=== PATIENT | female | born 1960 | race Caucasian/White ===

== ENCOUNTER 2017-04-09 21:51 | Emergency (ER) | payer MEDICARE ==
[~2017-04-09] VITALS: Ht 162.6 cm; Wt 69.9 kg
[~2017-04-09 21:51] MED LIST: ALBU8.5H3 INH; ASPI-621 PO; ASPI-650 PO; ATOR20TA9 PO; AZIT250T89 PO; CEFD300C37 PO; CYAN10002 PO; CYAN10005 PO; FLUT1DIS3 INH; HYDR-3138 PO; LISI-167 PO; MULT1CAP19 PO; ONDA4TAB7 PO; OXYC10TA32 PO; OXYC5TAB3 PO; PALI273S IM; POLY17PO5 PO; PRED20TA PO; SENN1TAB7 PO; geodon PO; lipitor PO; spironolactone PO
[2017-04-09 21:53] VITALS: BP 129/88
[2017-04-09] MEDS ORDERED: HYDROcodone/APAP 5/325 TABLET PO ONE (23:00)
[2017-04-09] MEDS ORDERED: IBUPROFEN 200 MG TABLET PO ONE (23:00)
[2017-04-09] MEDS ORDERED: HYDROcodone/APAP 5/325 TABLET ONE (23:01)
[2017-04-09] MEDS ORDERED: IBUPROFEN 200 MG TABLET ONE (23:01)
== END 2017-04-09 23:56 | disposition home or self-care (01) ==
LOC: ED 23:00
DX: S93.402A Sprain of unspecified ligament of left ankle, initial encounter (principal); R30.0 Dysuria; S93.602A Unspecified sprain of left foot, initial encounter; G45.9 Transient cerebral ischemic attack, unspecified; I11.0 Hypertensive heart disease with heart failure; I50.9 Heart failure, unspecified; J44.9 Chronic obstructive pulmonary disease, unspecified; E78.5 Hyperlipidemia, unspecified; M54.9 Dorsalgia, unspecified; G89.29 Other chronic pain; X50.9XXA Other and unspecified overexertion or strenuous movements or postures, initial encounter; Y93.89 Activity, other specified; Y92.89 Other specified places as the place of occurrence of the external cause; Y99.8 Other external cause status
CPT/HCPCS: 81003

== ENCOUNTER 2017-04-12 19:05 | Emergency (ER) | payer MEDICARE ==
[~2017-04-12] VITALS: Ht 162.6 cm; Wt 70.2 kg
[2017-04-12 19:16] VITALS: BP 106/69
[2017-04-12] MEDS ORDERED: HYDROcodone/APAP 5/325 TABLET PO ONE (20:36)
[2017-04-12] MEDS ORDERED: HYDROcodone/APAP 5/325 TABLET ONE (20:45)
== END 2017-04-12 20:54 | disposition home or self-care (01) ==
LOC: ED 20:48
DX: S93.492A Sprain of other ligament of left ankle, initial encounter (principal); I11.0 Hypertensive heart disease with heart failure; I50.9 Heart failure, unspecified; J44.9 Chronic obstructive pulmonary disease, unspecified; E78.5 Hyperlipidemia, unspecified; Z86.73 Personal history of transient ischemic attack (TIA), and cerebral infarction without residual deficits; Z90.710 Acquired absence of both cervix and uterus; Z88.0 Allergy status to penicillin; X58.XXXA Exposure to other specified factors, initial encounter; Y93.89 Activity, other specified; Y92.89 Other specified places as the place of occurrence of the external cause; Y99.9 Unspecified external cause status
CPT/HCPCS: 99284

== ENCOUNTER 2017-11-14 08:06 | Observation (INO) | payer MEDICARE, MEDICAID ==
[~2017-11-14] VITALS: Ht 165.1 cm; Wt 65.0 kg
[~2017-11-14 08:06] MED LIST changes: -ALBU8.5H3 INH; +ALBU8.5H8 INH; -HYDR-3138 PO; +HYDR-3237 PO; -OXYC10TA32 PO; +OXYC10TA47 PO
[2017-11-14 08:49] LABS: HEMATOCRIT 38.4 % (34.6-47.8); WHITE BLOOD COUNT 8.4 x10^3/uL (3.4-10)
[2017-11-14 09:01] LABS: BLOOD UREA NITROGEN 12 mg/dL (7-18)
[2017-11-14 09:02] LABS: ACETAMINOPHEN < 2 mcg/mL (10-30)
[2017-11-14 14:07] LABS: DAU SCREEN DISCLAIMER; HCG UR LOT HCG706132
[2017-11-14 14:29] LABS: HCG UR OBC PASS
[2017-11-14] MEDS ORDERED: ONDANSETRON ODT 4 MG PO PRN (15:30)
[2017-11-14 16:26] VITALS: BP 133/77
[2017-11-14] MEDS: ACETAMINOPHEN 325 MG TABLET PO PRN ×2 (17:05→23:57)
[2017-11-14 19:32] VITALS: BP 116/67
[2017-11-14] MEDS ORDERED: ATORVASTATIN 20 MG TABLET ONE (19:58)
[2017-11-14] MEDS: ATORVASTATIN 20 MG TABLET PO SCH ×2 (20:00→20:04)
[2017-11-15] MEDS: ASPIRIN 81 MG TABLET EC PO SCH (07:19)
[2017-11-15 07:52] VITALS: BP 128/77
[2017-11-15] MEDS: ACETAMINOPHEN 325 MG TABLET PO PRN ×3 (08:19→15:54)
[2017-11-15] MEDS: LISINOPRIL 10 MG TABLET PO SCH (08:19)
[2017-11-15] MEDS: IBUPROFEN 200 MG TABLET PO PRN ×2 (16:55→22:44)
[2017-11-15] MEDS: LORazepam 1MG TABLET PO PRN (19:35)
[2017-11-15 20:00] VITALS: BP 137/75
[2017-11-15] MEDS: ATORVASTATIN 20 MG TABLET PO SCH (20:18)
[2017-11-16] MEDS: ASPIRIN 81 MG TABLET EC PO SCH (06:51)
[2017-11-16] MEDS: ACETAMINOPHEN 325 MG TABLET PO PRN (06:51)
[2017-11-16 07:30] VITALS: BP 137/77
[2017-11-16] MEDS: LISINOPRIL 10 MG TABLET PO SCH (08:44)
[2017-11-16] MEDS: IBUPROFEN 200 MG TABLET PO PRN ×2 (09:58→20:57)
[2017-11-16] MEDS: LORazepam 1MG TABLET PO PRN ×2 (09:58→20:57)
[2017-11-16] MEDS: BENZOCAINE/MENTHOL CAN TP PRN ×2 (16:01→20:32)
[2017-11-16 20:00] VITALS: BP 131/85
[2017-11-16] MEDS: ATORVASTATIN 20 MG TABLET PO SCH (20:32)
[2017-11-17] MEDS: ASPIRIN 81 MG TABLET EC PO SCH (06:41)
[2017-11-17 08:01] VITALS: BP 128/78
[2017-11-17] MEDS: LISINOPRIL 10 MG TABLET PO SCH (08:17)
[2017-11-17] MEDS: IBUPROFEN 200 MG TABLET PO PRN (10:27)
[2017-11-17] MEDS: LORazepam 1MG TABLET PO PRN (10:27)
[2017-11-17] MEDS: ACETAMINOPHEN 325 MG TABLET PO PRN (14:02)
== END 2017-11-17 15:00 ==
LOC: ED 12:19 → EDIP 14:01 → 2N 15:52
PROVIDERS: ADMIT Hospitalist; ATTEND Hospitalist
DX: R45.851 Suicidal ideations (principal); F33.2 Major depressive disorder, recurrent severe without psychotic features; F20.9 Schizophrenia, unspecified; G89.29 Other chronic pain; E78.5 Hyperlipidemia, unspecified; J44.9 Chronic obstructive pulmonary disease, unspecified; I50.9 Heart failure, unspecified; I11.0 Hypertensive heart disease with heart failure; G45.9 Transient cerebral ischemic attack, unspecified; F41.1 Generalized anxiety disorder; Y90.0 Blood alcohol level of less than 20 mg/100 ml; Z59.0 Homelessness; Z86.73 Personal history of transient ischemic attack (TIA), and cerebral infarction without residual deficits; Z87.891 Personal history of nicotine dependence; Z90.710 Acquired absence of both cervix and uterus; Z91.83 Wandering in diseases classified elsewhere
CPT/HCPCS: 36415; 80048; 80307; 80329; 81025; 82040; 85025; 99285; G0378; G0479; G0480

== ENCOUNTER 2018-03-04 20:12 | Emergency (ER) | payer MEDICAID, MEDICARE ==
[~2018-03-04] VITALS: Ht 165.1 cm; Wt 61.2 kg
[2018-03-04 20:16] VITALS: BP 138/83
== END 2018-03-04 21:03 | disposition left against medical advice (07) ==
LOC: ED 20:57
DX: R51 Headache (principal); R10.9 Unspecified abdominal pain; R21 Rash and other nonspecific skin eruption; Z53.21 Procedure and treatment not carried out due to patient leaving prior to being seen by health care provider

== ENCOUNTER 2018-05-31 20:11 | Emergency (ER) | payer MEDICARE ==
[~2018-05-31] VITALS: Ht 167.6 cm; Wt 66.4 kg
[2018-05-31] MEDS ORDERED: IBUPROFEN 200 MG TABLET PO ONE (21:00)
[2018-05-31] MEDS ORDERED: IBUPROFEN 200 MG TABLET ONE (21:23)
[2018-05-31 22:05] VITALS: BP 118/74
== END 2018-05-31 22:58 | disposition home or self-care (01) ==
LOC: ED 20:59
DX: M79.605 Pain in left leg (principal); M79.604 Pain in right leg; J44.9 Chronic obstructive pulmonary disease, unspecified; E78.5 Hyperlipidemia, unspecified; F20.9 Schizophrenia, unspecified; F17.200 Nicotine dependence, unspecified, uncomplicated; Z59.0 Homelessness
CPT/HCPCS: 99283

== ENCOUNTER 2019-11-06 21:28 | Emergency (ER) | payer OTHER ==
[~2019-11-06] VITALS: Ht 160 cm; Wt 78.0 kg
[~2019-11-06 21:28] MED LIST changes: -ASPI-621 PO; +ASPI81TA45 PO; +ATOR20TA37 PO; -ATOR20TA9 PO; +CYAN-27 PO; -CYAN10005 PO; +LORA-446 PO; +NICO-486 TD; +OLAN10TA9 PO; +SENN-177 PO; -SENN1TAB7 PO
--- NOTE | 2019-11-07 03:43 | NUR ---
PT STS "IM HERE BECAUSE I FELL OUT OF AN ABULANCE EARLIER, THEY DID XRAYS." WHEN ASKED WHY SHE WAS IN AN ABULANCE, PT STS "ID RATHER NOT DISCUSS IT."
--- NOTE | 2019-11-07 03:57 | NUR ---
PT OFFERED ICE PACK. PT REFUSING ICE PACK AT THIS TIME
[2019-11-07] MEDS ORDERED: IBUPROFEN 600 MG TABLET PO ONE (04:00)
[2019-11-07] MEDS ORDERED: IBUPROFEN 600 MG TABLET ONE (04:22)
[2019-11-07 04:25] VITALS: BP 121/77
== END 2019-11-07 05:14 | disposition home or self-care (01) ==
LOC: ED 11-07 05:06
DX: S52.501A Unspecified fracture of the lower end of right radius, initial encounter for closed fracture (principal); W01.0XXA Fall on same level from slipping, tripping and stumbling without subsequent striking against object, initial encounter; Y93.89 Activity, other specified; Y92.410 Unspecified street and highway as the place of occurrence of the external cause; Y99.8 Other external cause status; I11.0 Hypertensive heart disease with heart failure; I50.9 Heart failure, unspecified; J44.9 Chronic obstructive pulmonary disease, unspecified; E78.5 Hyperlipidemia, unspecified; F17.200 Nicotine dependence, unspecified, uncomplicated; Z86.73 Personal history of transient ischemic attack (TIA), and cerebral infarction without residual deficits; Z90.710 Acquired absence of both cervix and uterus
CPT/HCPCS: 29125; 99283

== ENCOUNTER 2020-08-20 14:00 | Inpatient (IN) | payer MEDICARE ==
[~2020-08-20] VITALS: Ht 162.6 cm; Wt 72.5 kg
[~2020-08-20 14:00] MED LIST changes: +OLAN10TA3 PO; +OLAN5TAB9 PO; +SERT100T PO; +TRAM50TA2 PO; +TRAZ50TA66 PO
[2020-08-24] MEDS ORDERED: OLANZAPINE 10 MG INJ IM ONE (16:28)
[2020-08-24] MEDS ORDERED: DIAZEPAM 5 MG/ML, 2ML IM ONE (16:28)
[2020-08-24] MEDS ORDERED: PLEASE ENTER HEIGHT AND WEIGHT MC SCH (16:35)
[2020-08-24] MEDS ORDERED: LORazepam 2 MG/ML, 1ML IM STA (16:42)
[2020-08-24] MEDS ORDERED: DIPHENHYDRAMINE 50 MG/ML, 1ML IM STA (16:42)
[2020-08-24] MEDS ORDERED: HALOPERIDOL 5 MG/ML IM STA (16:42)
[2020-08-24] MEDS ORDERED: BISACODYL 10 MG SUPP PR PRN (17:00)
[2020-08-24] MEDS ORDERED: POLYETHYLENE GLYCOL 17 GM PACKET PO PRN (17:00)
[2020-08-24] MEDS ORDERED: DOCUSATE 100 MG CAPSULE PO PRN (17:00)
[2020-08-24] MEDS ORDERED: ONDANSETRON ODT 4 MG PO PRN (17:00)
[2020-08-24 17:11] VITALS: BP 131/86
[2020-08-24 20:00] VITALS: BP 139/85
[2020-08-25 05:26] LABS: CHOLESTEROL, TOTAL 245 mg/dL (140-239); TRIGLYCERIDES 404 mg/dL (50-200)
[2020-08-25 05:35] LABS: CHOL/HDL RATIO 5.7; FREE T4 (FREE THYROXINE) 0.84 ng/dL (0.76-1.46); HDL CHOL % 18 % (28-40); HDL CHOLESTEROL (DIRECT) 43 mg/dL (40-60)
[2020-08-25 07:34] VITALS: BP 115/75
[2020-08-25] MEDS: NICOTINE 7 MG/24 HR PATCH.TD24 TD SCH (08:24)
[2020-08-25] MEDS: DIAZEPAM 5 MG TABLET PO SCH ×2 (11:07→20:41)
[2020-08-25] MEDS: OLANZAPINE 10 MG TABLET PO SCH ×2 (11:07→20:41)
[2020-08-25] MEDS: ACETAMINOPHEN 325 MG TABLET PO PRN (20:41)
[2020-08-25 20:59] VITALS: BP 136/82
[2020-08-26 07:00] VITALS: BP 109/73
[2020-08-26] MEDS: DIAZEPAM 5 MG TABLET PO SCH ×2 (08:24→20:13)
[2020-08-26] MEDS: OLANZAPINE 10 MG TABLET PO SCH ×2 (08:24→20:13)
[2020-08-26] MEDS: NICOTINE 7 MG/24 HR PATCH.TD24 TD SCH (08:25)
[2020-08-26 19:46] VITALS: BP 123/80
[2020-08-27 08:24] VITALS: BP 118/80
[2020-08-27] MEDS: NICOTINE 7 MG/24 HR PATCH.TD24 TD SCH (09:00)
[2020-08-27] MEDS: OLANZAPINE 10 MG TABLET PO SCH ×2 (09:00→20:19)
[2020-08-27] MEDS: DIAZEPAM 5 MG TABLET PO SCH ×2 (09:00→20:18)
[2020-08-27 19:01] VITALS: BP 125/83
[2020-08-27] MEDS: ACETAMINOPHEN 325 MG TABLET PO PRN (20:49)
[2020-08-28 07:00] VITALS: BP 118/73
[2020-08-28] MEDS: DIAZEPAM 5 MG TABLET PO SCH ×2 (08:21→20:00)
[2020-08-28] MEDS: OLANZAPINE 10 MG TABLET PO SCH ×2 (08:21→20:00)
[2020-08-28] MEDS: NICOTINE 7 MG/24 HR PATCH.TD24 TD SCH (09:00)
[2020-08-28] MEDS: ACETAMINOPHEN 325 MG TABLET PO PRN (18:36)
[2020-08-28 19:30] VITALS: BP 122/67
[2020-08-29 07:25] VITALS: BP 110/70
[2020-08-29] MEDS: DIAZEPAM 5 MG TABLET PO SCH ×2 (08:44→20:28)
[2020-08-29] MEDS: OLANZAPINE 10 MG TABLET PO SCH ×2 (08:44→20:28)
[2020-08-29] MEDS: DIPHENHYDRAMINE 25 MG CAPSULE PO PRN (11:55)
[2020-08-29 20:16] VITALS: BP 95/84
[2020-08-30 07:46] VITALS: BP 104/70
[2020-08-30] MEDS: OLANZAPINE 10 MG TABLET PO SCH ×2 (09:08→20:13)
[2020-08-30] MEDS: DIAZEPAM 5 MG TABLET PO SCH ×2 (09:08→20:13)
[2020-08-30 20:20] VITALS: BP 121/77
[2020-08-31 07:32] VITALS: BP 104/70
[2020-08-31] MEDS: OLANZAPINE 10 MG TABLET PO SCH ×2 (08:57→20:47)
[2020-08-31] MEDS: DIAZEPAM 5 MG TABLET PO SCH ×2 (08:57→20:47)
[2020-08-31] MEDS: ACETAMINOPHEN 325 MG TABLET PO PRN (16:06)
[2020-08-31 20:18] VITALS: BP 119/76
[2020-09-01 07:36] VITALS: BP 101/67
[2020-09-01] MEDS: OLANZAPINE 10 MG TABLET PO SCH ×2 (08:11→20:37)
[2020-09-01] MEDS: DIAZEPAM 5 MG TABLET PO SCH ×2 (08:11→20:37)
[2020-09-01 20:10] VITALS: BP 105/65
[2020-09-01] MEDS: ACETAMINOPHEN 325 MG TABLET PO PRN (20:36)
[2020-09-02 07:34] VITALS: BP 111/66
[2020-09-02] MEDS: DIAZEPAM 5 MG TABLET PO SCH ×2 (08:36→20:17)
[2020-09-02] MEDS: OLANZAPINE 10 MG TABLET PO SCH ×2 (08:37→20:17)
[2020-09-02] MEDS: DIPHENHYDRAMINE 25 MG CAPSULE PO PRN (17:50)
[2020-09-02 19:16] VITALS: BP 123/72
[2020-09-02] MEDS: ACETAMINOPHEN 325 MG TABLET PO PRN (20:17)
[2020-09-03 07:14] VITALS: BP 113/70
[2020-09-03] MEDS: OLANZAPINE 10 MG TABLET PO SCH ×2 (09:09→19:54)
[2020-09-03] MEDS: DIAZEPAM 5 MG TABLET PO SCH ×2 (09:09→19:54)
[2020-09-03 18:27] VITALS: BP 124/81
[2020-09-03] MEDS: ACETAMINOPHEN 325 MG TABLET PO PRN (18:43)
[2020-09-04 07:10] VITALS: BP 115/73
[2020-09-04] MEDS: OLANZAPINE 10 MG TABLET PO SCH ×2 (08:06→20:20)
[2020-09-04] MEDS: DIAZEPAM 5 MG TABLET PO SCH ×2 (08:06→20:20)
[2020-09-04 19:20] VITALS: BP 126/79
[2020-09-05 07:47] VITALS: BP 104/68
[2020-09-05] MEDS: DIAZEPAM 5 MG TABLET PO SCH ×2 (08:34→20:05)
[2020-09-05] MEDS: OLANZAPINE 10 MG TABLET PO SCH ×2 (08:35→20:06)
[2020-09-05 19:54] VITALS: BP 110/75
[2020-09-05] MEDS: ACETAMINOPHEN 325 MG TABLET PO PRN (20:05)
[2020-09-06 07:36] VITALS: BP 107/72
[2020-09-06] MEDS: OLANZAPINE 10 MG TABLET PO SCH ×2 (08:16→19:35)
[2020-09-06] MEDS: DIAZEPAM 5 MG TABLET PO SCH ×2 (08:16→19:35)
[2020-09-06 19:49] VITALS: BP 115/75
[2020-09-07] MEDS: ACETAMINOPHEN 325 MG TABLET PO PRN (06:03)
[2020-09-07 07:21] VITALS: BP 117/80
[2020-09-07] MEDS: DIAZEPAM 5 MG TABLET PO SCH (08:17)
[2020-09-07] MEDS: OLANZAPINE 10 MG TABLET PO SCH (08:18)
[2020-09-07] MEDS ORDERED: LISI-167 PO (12:08)
[2020-09-07] MEDS ORDERED: DIPH25CA26 PO (12:08)
[2020-09-07] MEDS ORDERED: OLAN10TA9 PO (12:08)
== END 2020-09-07 13:15 | disposition home or self-care (01) | DRG 885 ==
LOC: 3E 08-24 16:19
PROVIDERS: ADMIT Psychiatry & Neurology Psychosomatic Medicine; ATTEND Psychiatry & Neurology Psychosomatic Medicine
DX: F20.0 Paranoid schizophrenia (principal); Z91.14 Patient's other noncompliance with medication regimen; F17.200 Nicotine dependence, unspecified, uncomplicated; E78.5 Hyperlipidemia, unspecified; G89.29 Other chronic pain; I10 Essential (primary) hypertension; J44.9 Chronic obstructive pulmonary disease, unspecified; L29.9 Pruritus, unspecified; Z59.0 Homelessness; Z79.899 Other long term (current) drug therapy; Z86.73 Personal history of transient ischemic attack (TIA), and cerebral infarction without residual deficits; Z90.710 Acquired absence of both cervix and uterus; Z91.19 Patient's noncompliance with other medical treatment and regimen
CPT/HCPCS: 36415; 80061; 84439; 84443; 93005; J1200; J1630; J2060; Q0163

== ENCOUNTER 2020-09-14 16:21 | Emergency (ER) | payer MEDICARE, MEDICAID ==
[~2020-09-14] VITALS: Ht 165.1 cm; Wt 59.0 kg
[~2020-09-14 16:21] MED LIST changes: +DIPH25CA26 PO
--- NOTE | 2020-09-14 16:30 | NUR ---
TASK RN. ADOLFO RODRÍGUEZ FOR LLE PAIN S/P GLF. PT STATES "MY NECK IS HURTING AND I FELT LIKE I WAS GOING TO PASS OUT, THEN I TRIPPED OFF THE SIDEWALK AND ROLLED MY ANKLE, I'VE BROKE THAT ANKLE BEFORE." DENIES HITTING HEAD WITH FALL OR ANY LOC. + SWELLING LLE. CMS INTACT. SKIN PWD. PULSE PRESENT. DENIES ANY CP, SOB, DIZZINESS, JIMENEZ AT THIS TIME. RATES PAIN 8/10 LLE, "I HAVE CHRONIC PAIN TOO, SO MY WHOLE BODY AND NECK ALWAYS HURTS." CONT PULSE OX, BP MONITORS APPLIED. VSS. CALL LIGHT IN REACH. FALL PRECAUTIONS IN PLACE. SIDE RAILS UPX2. A&OX4. GENARO ARCEO AT BEDSIDE FOR EVALUATION. AWAITING ORDERS. ASSESSMENT COMPLETED.
--- NOTE | 2020-09-14 16:35 | NUR ---
LLE ELEVATED AND ICE PACK IN PLACE. CMS REMAINS INTACT.
--- NOTE | 2020-09-14 16:45 | NUR ---
BEDSIDE REPORT AND TRANSFER OF CARE TO KERRI GARCIA AT THIS TIME.
--- NOTE | 2020-09-14 17:40 | NUR ---
Daniela alcocer in ED - 09/14/20 at 1741 by SASKIA PT STATED THAT THE SANDWICH IN HIS MEAL TRAY IS SOGGY. NEW MEAL TRAY ORDERED.
[2020-09-14 17:46] VITALS: BP 122/62
--- NOTE | 2020-09-14 17:47 | NUR ---
aircast splint applied by EMT and instructions given distal CSM+. [facility] [place]. Taxi Voucher provided.
--- NOTE | 2020-09-14 17:59 | NUR ---
Patient/Caregiver given discharge instructions and they have confirmed that they understand the instructions. Patient ambulatory to wheelchair. Taxi voucher provided.
== END 2020-09-14 18:33 | disposition home or self-care (01) ==
LOC: ED 17:30
DX: S93.492A Sprain of other ligament of left ankle, initial encounter (principal); M54.2 Cervicalgia; J44.9 Chronic obstructive pulmonary disease, unspecified; I11.0 Hypertensive heart disease with heart failure; I50.9 Heart failure, unspecified; E78.5 Hyperlipidemia, unspecified; F17.200 Nicotine dependence, unspecified, uncomplicated; Z86.73 Personal history of transient ischemic attack (TIA), and cerebral infarction without residual deficits; Z90.89 Acquired absence of other organs; Z90.710 Acquired absence of both cervix and uterus; W01.0XXA Fall on same level from slipping, tripping and stumbling without subsequent striking against object, initial encounter; Y93.89 Activity, other specified; Y92.410 Unspecified street and highway as the place of occurrence of the external cause; Y99.8 Other external cause status
CPT/HCPCS: 99283; 99284

== ENCOUNTER 2020-11-05 09:22 | Emergency (ER) | payer MEDICAID, MEDICARE ==
[~2020-11-05] VITALS: Ht 165.1 cm; Wt 65.0 kg
--- NOTE | 2020-11-05 09:26 | NUR ---
patient arrives with cold exposure from sleeping outside on streets.
--- NOTE | 2020-11-05 09:35 | NUR ---
patient has warming blanket and warm blankets, rails up in bed
--- NOTE | 2020-11-05 10:29 | NUR ---
got patient broth warm soup, muffin and water.
--- NOTE | 2020-11-05 11:40 | NUR ---
ate all of soup. sleeping. still states feet hurt, feet are warm now
[2020-11-05 11:57] VITALS: BP 132/78
--- NOTE | 2020-11-05 12:07 | NUR ---
got patient food, and she has warm clothes. discharge reviewed.
--- NOTE | 2020-11-05 12:31 | NUR ---
patient taking a long time to get dressed, she is not wanting to leave. encouraging her to get on her way.
--- NOTE | 2020-11-05 12:44 | NUR ---
got patient shoes
== END 2020-11-05 12:52 | disposition home or self-care (01) ==
LOC: ED 09:52
DX: T69.9XXA Effect of reduced temperature, unspecified, initial encounter (principal); J44.9 Chronic obstructive pulmonary disease, unspecified; M19.90 Unspecified osteoarthritis, unspecified site; I50.9 Heart failure, unspecified; I11.0 Hypertensive heart disease with heart failure; E78.5 Hyperlipidemia, unspecified; F17.210 Nicotine dependence, cigarettes, uncomplicated; Z90.89 Acquired absence of other organs; Z86.73 Personal history of transient ischemic attack (TIA), and cerebral infarction without residual deficits; Z90.710 Acquired absence of both cervix and uterus
CPT/HCPCS: 99283; 99406

== ENCOUNTER 2021-02-27 21:39 | Emergency (ER) | payer MEDICAID ==
[~2021-02-27] VITALS: Ht 162.6 cm; Wt 72.0 kg
[~2021-02-27 21:39] MED LIST changes: -ASPI-650 PO; +ASPI325T20 PO; -OXYC5TAB3 PO; +OXYC5TAB98 PO
--- NOTE | 2021-02-27 21:52 | NUR ---
Patient BIBA from the street c/o bilat leg stiffness. Per EMS, patient was sitting on a curb; [employer] contacted patient and she stated she needed medical attention. Patient states she is having diff walking. Symptoms started x2 days ago. Patient is in NAD. Respirations even and unlabored.
[2021-02-27 22:20] LABS: BASOPHILS % (AUTO) 1 % (0-1); EOSINOPHILS % (AUTO) 1 % (1-7); LYMPHOCYTES % (AUTO) 26 % (22-44); MEAN CORPUSCULAR HEMOGLOBIN 28.2 pg (27.0-34.8); MEAN CORPUSCULAR HGB CONC 33.1 g/dL (32.4-35.8); MEAN PLATELET VOLUME 8.2 fL (7.4-10.4); MONOCYTES % (AUTO) 8 % (2-9); NEUTROPHILS % (AUTO) 65 % (42-75); PLATELET COUNT 232 x10^3/uL (130-400); RED BLOOD COUNT 4.06 x10^6/uL (3.82-5.3); RED CELL DISTRIBUTION WIDTH 20.2 % (9.6-15.2)
[2021-02-27 22:28] LABS: ALBUMIN 3.9 g/dL (3.4-5.0); ANION GAP 4 mmol/L (5-15); C-REACTIVE PROTEIN, QUANT 0.67 mg/dL (0.02-0.49); CALCIUM 9.1 mg/dL (8.5-10.1); CHLORIDE 111 mmol/L (98-107); CREATININE 0.67 mg/dL (0.55-1.02)
[2021-02-27 22:32] LABS: TROPONIN I < 0.015 ng/mL (0.000-0.045)
[2021-02-27 22:41] LABS: MD SCAN
--- NOTE | 2021-02-27 23:47 | NUR ---
PATIENT CLEARED FOR DISCHARGE. PATIENT VERBALIZED UNDERSTANDING OF SELF CARE AND FOLLOW UP CARE AT HOME. PT GIVEN WHEELCHAIR PER REQUEST. VITAL SIGNS STABLE. NO NOTED ACUTE DISTRESS.
[2021-02-27 23:48] VITALS: BP 170/68
== END 2021-02-27 23:50 | disposition home or self-care (01) ==
LOC: ED 22:46
DX: M79.662 Pain in left lower leg (principal); M79.661 Pain in right lower leg; R94.31 Abnormal electrocardiogram [ECG] [EKG]; I11.0 Hypertensive heart disease with heart failure; I50.9 Heart failure, unspecified; J44.9 Chronic obstructive pulmonary disease, unspecified; E78.5 Hyperlipidemia, unspecified; Z90.89 Acquired absence of other organs; Z90.710 Acquired absence of both cervix and uterus; Z86.73 Personal history of transient ischemic attack (TIA), and cerebral infarction without residual deficits
CPT/HCPCS: 36415; 80048; 82040; 84484; 85025; 85651; 86140; 93005; 99284

== ENCOUNTER 2021-03-09 14:20 | Emergency (ER) | payer MEDICAID ==
[~2021-03-09] VITALS: Ht 162.6 cm; Wt 95.0 kg
--- NOTE | 2021-03-09 14:54 | NUR ---
THIS TECH ATTEMPTED A BREATHALYZER AT THIS TIME AND P/T DENIED.
--- NOTE | 2021-03-09 15:56 | NUR ---
pt refusing to speak to this rn despite education, offering food/drink/bathroom, and warm blankets. pts daughter masha called [phone]. pt denied sharing information with daughter
[2021-03-09 17:23] VITALS: BP 124/88
--- NOTE | 2021-03-09 17:25 | NUR ---
Patient given discharge instructions and patient would not confirmed that they understood the instructions. Patient became agressive and lunged at this RN. Security called and escorted Patient out. Patient ambulatory with steady gait.
== END 2021-03-09 17:26 | disposition home or self-care (01) ==
LOC: ED 17:20
DX: R51.9 Headache, unspecified (principal); J44.9 Chronic obstructive pulmonary disease, unspecified; I11.0 Hypertensive heart disease with heart failure; I50.9 Heart failure, unspecified; E78.5 Hyperlipidemia, unspecified; Z90.89 Acquired absence of other organs; Z90.710 Acquired absence of both cervix and uterus
CPT/HCPCS: 99283

== ENCOUNTER 2021-03-10 08:09 | Emergency (ER) | payer MEDICAID ==
[~2021-03-10] VITALS: Ht 165.1 cm; Wt 70.0 kg
--- NOTE | 2021-03-10 08:29 | NUR ---
SHELBY ARCEO BEDSIDE
--- NOTE | 2021-03-10 08:35 | NUR ---
ASSUMED PT CARE. "CANT WALK ON MY LEFT FOOT. PUTTING PRESSURE ON IT HURTS. I FEEL VERY SHAKY" "10/10 PAIN, IF NOT MORE." "PT MY CHEST HURTS WELL, RIGHT IN MIDDLE"
--- NOTE | 2021-03-10 08:56 | NUR ---
JAZMIN DAUGHTER FROM [place], PT INITIALLY SAID, "SHE IS " BUT DID GIVE PERMISSION TO SPEAK WITH HER DAUGHTER. DEC 01 TOES TAKEN OFF TOTAL FROM EACH FOOT. BLANCO PARRA ADMITTED MID-DEC TO BEGINNING OF JANUARY FOR BONE INFECTION. FEBRUARY 23 LAST TIME PT SAW HER, PT WAS D/C FROM [place] 02/22. HAD TO BE ON ABX 6 WEEK. PT IS HOMELESS AND MENTALLY ILL WITH SCHIZOPHRENIA
--- NOTE | 2021-03-10 09:04 | NUR ---
JAZMIN DAUGHTER: [phone]
--- NOTE | 2021-03-10 09:13 | NUR ---
PT UNCOOPERATIVE WITH ASSESSMENT, APPEARS AGITATED/ANXIOUS DURING ASSESSMENT. NOT FULLY COMPLETED I.E MED REC.
--- NOTE | 2021-03-10 09:46 | NUR ---
UPDATE DAUGHTER. PT IS STAYING AT EXTENDED STAY AM ON [address]
[2021-03-10 09:53] VITALS: BP 145/76
== END 2021-03-10 10:02 | disposition home or self-care (01) ==
LOC: ED 08:24
DX: M86.172 Other acute osteomyelitis, left ankle and foot (principal); M79.672 Pain in left foot; J44.9 Chronic obstructive pulmonary disease, unspecified; I11.0 Hypertensive heart disease with heart failure; I50.9 Heart failure, unspecified; E78.5 Hyperlipidemia, unspecified; M19.90 Unspecified osteoarthritis, unspecified site; Z90.89 Acquired absence of other organs; Z86.73 Personal history of transient ischemic attack (TIA), and cerebral infarction without residual deficits; Z90.710 Acquired absence of both cervix and uterus
CPT/HCPCS: 93005; 99283

== ENCOUNTER 2021-04-13 04:16 | Emergency (ER) | payer MEDICAID ==
[~2021-04-13] VITALS: Ht 162.6 cm; Wt 72.3 kg
[2021-04-13] MEDS ORDERED: IBUPROFEN 600 MG TABLET ONE (05:15)
--- NOTE | 2021-04-13 05:21 | NUR ---
PT MEDICATED PER EMAR. FSBS 95. ERP UPDATED. RESTING ON [employer] W/ CALL LIGHT IN REACH AND SIDE RAILS UPX2. RESP EVEN AND UNLABORED, SHAWANDA.
[2021-04-13] MEDS ORDERED: IBUPROFEN 600 MG TABLET PO ONE (05:30)
[2021-04-13 06:04] VITALS: BP 139/81
--- NOTE | 2021-04-13 06:11 | NUR ---
Patient given discharge instructions and they have confirmed that they understand the instructions. Patient ambulatory with steady gait. Patient provided w/ water bottles and snacks.
== END 2021-04-13 06:13 | disposition home or self-care (01) ==
LOC: ED 05:48
DX: L55.0 Sunburn of first degree (principal); R51.9 Headache, unspecified; J44.9 Chronic obstructive pulmonary disease, unspecified; I11.0 Hypertensive heart disease with heart failure; I50.9 Heart failure, unspecified; E78.5 Hyperlipidemia, unspecified; Z90.89 Acquired absence of other organs; Z90.710 Acquired absence of both cervix and uterus
CPT/HCPCS: 82962; 99283; Q0177

== ENCOUNTER 2021-06-24 14:05 | Inpatient (IN) | payer MEDICARE, MEDICAID ==
[~2021-06-24] VITALS: Ht 165.1 cm; Wt 90.0 kg
[~2021-06-24 14:05] MED LIST changes: +OLAN10TA69 PO; -OLAN10TA9 PO; +OLAN5TAB69 PO; -OLAN5TAB9 PO
[2021-06-24 14:40] VITALS: BP 111/68
[2021-06-24] MEDS ORDERED: VANCOMYCIN PER PHARMACY MC PRN (15:30)
[2021-06-24] MEDS ORDERED: AMPICILLIN/SULBACTAM 3 GM in SODIUM CHLORIDE 0.9% 100 ML IV SCH (15:30)
[2021-06-24] MEDS ORDERED: ONDANSETRON 2MG/ML, 2ML IVPush PRN (15:30)
[2021-06-24] MEDS ORDERED: ACETAMINOPHEN 325 MG TABLET PO PRN (15:30)
[2021-06-24] MEDS ORDERED: ENALAPRILAT 1.25 MG/ML, 2ML IVPush PRN (15:30)
[2021-06-24] MEDS ORDERED: PHARMACOKINETIC CONSULTATION MC ONE (16:00)
[2021-06-24] MEDS ORDERED: PHARMACOKINETIC MONITORING MC PRN (16:00)
[2021-06-24] MEDS ORDERED: MELOXICAM 15 MG TABLET PO PRN (16:00)
[2021-06-24 16:22] LABS: ALANINE AMINOTRANSFERASE 22 U/L (12-78); ALBUMIN 3.3 g/dL (3.4-5.0); ANION GAP 5 mmol/L (5-15); C-REACTIVE PROTEIN, QUANT 0.12 mg/dL (0.02-0.49); CALCIUM 8.6 mg/dL (8.5-10.1); CHLORIDE 104 mmol/L (98-107); CREATININE 0.57 mg/dL (0.55-1.02)
[2021-06-24 16:24] LABS: ALKALINE PHOSPHATASE 71 U/L (45-117); BILIRUBIN,TOTAL 0.2 mg/dL (0.2-1.0); TOTAL PROTEIN 6.9 g/dL (6.4-8.2)
[2021-06-24 16:26] LABS: BASOPHILS % (AUTO) 0 % (0-1); EOSINOPHILS % (AUTO) 2 % (1-7); HCT (SEDRATE) 36.2 % (34.6-47.8); LYMPHOCYTES % (AUTO) 31 % (22-44); MEAN CORPUSCULAR HEMOGLOBIN 29.7 pg (27.0-34.8); MEAN CORPUSCULAR HGB CONC 33.6 g/dL (32.4-35.8); MEAN PLATELET VOLUME 8.7 fL (7.4-10.4); MONOCYTES % (AUTO) 10 % (2-9); NEUTROPHILS % (AUTO) 57 % (42-75); PLATELET COUNT 187 x10^3/uL (130-400); RED BLOOD COUNT 4.05 x10^6/uL (3.82-5.3); RED CELL DISTRIBUTION WIDTH 14.7 % (9.6-15.2)
[2021-06-24] MEDS: VANCOMYCIN 1,700 MG in SODIUM CHLORIDE 0.9% 250 ML IV SCH (16:26)
[2021-06-24] MEDS ORDERED: GADOTERATE 7.5 MMOL/15ML SYR ONE (18:12)
[2021-06-24] MEDS ORDERED: SIMETHICONE 80 MG CHEW TAB PO PRN (19:00)
[2021-06-24] MEDS: AMPICILLIN/SULBACTAM 3 GM in SODIUM CHLORIDE 0.9% 100 ML IV SCH (19:10)
[2021-06-24 19:46] VITALS: BP 106/60
[2021-06-24] MEDS: morphine SULFATE 10 MG/ML, 1ML IVPush PRN ×2 (19:46→23:01)
[2021-06-24 20:06] LABS: AMPHETAMINE SCREEN, URINE Negative (Negative); BARBITURATE SCREEN, URINE Negative (Negative); BENZODIAZEPINE SCREEN, URINE Negative (Negative); CANNABINOID SCREEN, URINE Negative (Negative); COCAINE SCREEN, URINE Negative (Negative); METHADONE SCREEN, URINE Negative (Negative); OPIATE SCREEN, URINE Negative (Negative)
[2021-06-24] MEDS: OLANZAPINE 10 MG TABLET PO SCH (20:45)
[2021-06-25 00:04] VITALS: BP 121/60
[2021-06-25] MEDS: AMPICILLIN/SULBACTAM 3 GM in SODIUM CHLORIDE 0.9% 100 ML IV SCH ×4 (01:07→19:42)
[2021-06-25] MEDS: VANCOMYCIN 1,700 MG in SODIUM CHLORIDE 0.9% 250 ML IV SCH ×2 (04:15→16:01)
[2021-06-25 05:54] LABS: ANION GAP 4 mmol/L (5-15); CALCIUM 8.4 mg/dL (8.5-10.1); CHLORIDE 112 mmol/L (98-107); CREATININE 0.54 mg/dL (0.55-1.02)
[2021-06-25] MEDS: morphine SULFATE 10 MG/ML, 1ML IVPush PRN ×5 (06:25→23:39)
[2021-06-25 06:34] LABS: BASOPHILS % (AUTO) 1 % (0-1); EOSINOPHILS % (AUTO) 2 % (1-7); LYMPHOCYTES % (AUTO) 33 % (22-44); MEAN CORPUSCULAR HEMOGLOBIN 29.7 pg (27.0-34.8); MEAN CORPUSCULAR HGB CONC 33.1 g/dL (32.4-35.8); MEAN PLATELET VOLUME 8.6 fL (7.4-10.4); MONOCYTES % (AUTO) 8 % (2-9); NEUTROPHILS % (AUTO) 56 % (42-75); PLATELET COUNT 181 x10^3/uL (130-400); RED BLOOD COUNT 3.93 x10^6/uL (3.82-5.3); RED CELL DISTRIBUTION WIDTH 14.9 % (9.6-15.2)
[2021-06-25 06:44] VITALS: BP 105/56
[2021-06-25] MEDS ORDERED: FENTANYL PF 100 MCG/2ML ONE ×2 (08:16→09:08)
[2021-06-25] MEDS ORDERED: BUPIVACAINE/PF 0.5% ONE (08:18)
[2021-06-25] MEDS ORDERED: LIDOCAINE 1%, 20ML ONE (08:21)
[2021-06-25] MEDS ORDERED: ONDANSETRON 2MG/ML, 2ML IVPush PRN (08:30)
[2021-06-25] MEDS ORDERED: MEPERIDINE/PF 25MG/0.5ML IVPush PRN (08:30)
[2021-06-25] MEDS ORDERED: OXYcodone 5 MG/5 ML ORAL.SOL UDC PO PRN (08:30)
[2021-06-25] MEDS ORDERED: hydrALAzine 20 MG/ML, 1ML IV PRN (08:30)
[2021-06-25] MEDS ORDERED: FENTANYL PF 100 MCG/2ML IV PRN (08:30)
[2021-06-25] MEDS ORDERED: HYDROmorphone 1 MG/ML, 1ML INJ IVPush PRN (08:30)
[2021-06-25] MEDS ORDERED: PROMETHAZINE 25 MG SUPP PR PRN (08:30)
[2021-06-25] MEDS ORDERED: PROMETHAZINE 25 MG/ML, 1ML IVPush PRN (08:30)
[2021-06-25] MEDS ORDERED: ACETAMINOPHEN 325 MG TABLET PO PRN (08:30)
[2021-06-25] MEDS ORDERED: LABETALOL 5MG/ML, 20ML IV PRN (08:30)
[2021-06-25] MEDS ORDERED: LORazepam 2 MG/ML, 1ML IVPush PRN (08:30)
[2021-06-25] MEDS ORDERED: METHOCARBAMOL 1,000 MG in DEXTROSE 5% 100 ML IV PRN (08:30)
[2021-06-25] MEDS ORDERED: DEXAMETHASONE 4 MG/ML, 1ML ONE (08:45)
[2021-06-25] MEDS ORDERED: CEFAZOLIN 1,000 MG ONE (08:45)
[2021-06-25] MEDS ORDERED: ONDANSETRON 2MG/ML, 2ML ONE (08:45)
[2021-06-25] MEDS ORDERED: PROPOFOL 10 MG/ML, 20ML ONE (08:45)
[2021-06-25] MEDS ORDERED: OXYcodone 5 MG/5 ML ORAL.SOL UDC ONE (09:08)
[2021-06-25] MEDS: SENNA/DOCUSATE TABLET PO SCH (11:00)
[2021-06-25] MEDS: OLANZAPINE 10 MG TABLET PO SCH ×2 (11:50→20:25)
[2021-06-25] MEDS: LISINOPRIL 10 MG TABLET PO SCH (11:50)
[2021-06-25] MEDS: TERBINAFINE 250MG TABLET PO SCH (11:50)
[2021-06-25 12:30] VITALS: BP 109/72
[2021-06-25 19:37] VITALS: BP 100/49
[2021-06-26] MEDS: AMPICILLIN/SULBACTAM 3 GM in SODIUM CHLORIDE 0.9% 100 ML IV SCH ×4 (00:48→20:02)
[2021-06-26 02:04] VITALS: BP 127/76
[2021-06-26] MEDS: VANCOMYCIN 1,700 MG in SODIUM CHLORIDE 0.9% 250 ML IV SCH ×2 (04:08→16:23)
[2021-06-26] MEDS: morphine SULFATE 10 MG/ML, 1ML IVPush PRN ×5 (04:15→20:03)
[2021-06-26 06:17] VITALS: BP 103/67
[2021-06-26 07:20] VITALS: BP 121/79
[2021-06-26] MEDS: TERBINAFINE 250MG TABLET PO SCH (07:32)
[2021-06-26] MEDS: LISINOPRIL 10 MG TABLET PO SCH (07:33)
[2021-06-26] MEDS: SENNA/DOCUSATE TABLET PO SCH (07:33)
[2021-06-26] MEDS: OLANZAPINE 10 MG TABLET PO SCH ×2 (07:33→20:03)
[2021-06-26 12:19] VITALS: BP 124/76
[2021-06-26] MEDS: HYDROcodone/APAP 5/325 TABLET PO PRN ×2 (15:11→21:46)
[2021-06-26 18:52] VITALS: BP 106/69
[2021-06-27 00:39] VITALS: BP 118/74
[2021-06-27] MEDS: AMPICILLIN/SULBACTAM 3 GM in SODIUM CHLORIDE 0.9% 100 ML IV SCH ×4 (01:03→18:14)
[2021-06-27] MEDS: morphine SULFATE 10 MG/ML, 1ML IVPush PRN ×2 (01:26→07:54)
[2021-06-27] MEDS: HYDROcodone/APAP 5/325 TABLET PO PRN ×2 (04:16→18:03)
[2021-06-27] MEDS: VANCOMYCIN 1,700 MG in SODIUM CHLORIDE 0.9% 250 ML IV SCH (04:16)
[2021-06-27 06:08] LABS: ALANINE AMINOTRANSFERASE 40 U/L (12-78); ALBUMIN 3.1 g/dL (3.4-5.0); ANION GAP 2 mmol/L (5-15); C-REACTIVE PROTEIN, QUANT 0.61 mg/dL (0.02-0.49); CALCIUM 8.2 mg/dL (8.5-10.1); CHLORIDE 106 mmol/L (98-107); CREATININE 0.51 mg/dL (0.55-1.02)
[2021-06-27 06:10] LABS: ALKALINE PHOSPHATASE 84 U/L (45-117); BILIRUBIN,TOTAL 0.3 mg/dL (0.2-1.0); TOTAL PROTEIN 6.5 g/dL (6.4-8.2)
[2021-06-27 06:24] LABS: BASOPHILS % (AUTO) 1 % (0-1); EOSINOPHILS % (AUTO) 3 % (1-7); HCT (SEDRATE) 31.8 % (34.6-47.8); LYMPHOCYTES % (AUTO) 36 % (22-44); MEAN CORPUSCULAR HEMOGLOBIN 30.3 pg (27.0-34.8); MEAN CORPUSCULAR HGB CONC 33.8 g/dL (32.4-35.8); MEAN PLATELET VOLUME 8.9 fL (7.4-10.4); MONOCYTES % (AUTO) 9 % (2-9); NEUTROPHILS % (AUTO) 52 % (42-75); PLATELET COUNT 176 x10^3/uL (130-400); RED BLOOD COUNT 3.55 x10^6/uL (3.82-5.3); RED CELL DISTRIBUTION WIDTH 14.9 % (9.6-15.2)
[2021-06-27 06:42] VITALS: BP 129/79
[2021-06-27] MEDS: TERBINAFINE 250MG TABLET PO SCH (07:55)
[2021-06-27] MEDS: OLANZAPINE 10 MG TABLET PO SCH ×2 (07:55→20:20)
[2021-06-27] MEDS: LISINOPRIL 10 MG TABLET PO SCH (07:55)
[2021-06-27] MEDS: SENNA/DOCUSATE TABLET PO SCH (07:56)
[2021-06-27 12:29] VITALS: BP 112/73
[2021-06-27] MEDS: MORPHINE SULFATE 4 MG/ML, 1ML IVPush PRN ×2 (15:17→20:20)
[2021-06-27] MEDS: VANCOMYCIN 1,600 MG in SODIUM CHLORIDE 0.9% 250 ML IV SCH (16:08)
[2021-06-27 19:10] VITALS: BP 152/87
[2021-06-28 00:23] VITALS: BP 131/79
[2021-06-28] MEDS: AMPICILLIN/SULBACTAM 3 GM in SODIUM CHLORIDE 0.9% 100 ML IV SCH ×4 (00:45→20:07)
[2021-06-28] MEDS: HYDROcodone/APAP 5/325 TABLET PO PRN ×4 (00:45→23:26)
[2021-06-28] MEDS: VANCOMYCIN 1,600 MG in SODIUM CHLORIDE 0.9% 250 ML IV SCH ×2 (04:12→16:37)
[2021-06-28 06:50] VITALS: BP 137/77
[2021-06-28] MEDS: OLANZAPINE 10 MG TABLET PO SCH ×2 (07:51→20:07)
[2021-06-28] MEDS: LISINOPRIL 10 MG TABLET PO SCH (07:51)
[2021-06-28] MEDS: SENNA/DOCUSATE TABLET PO SCH (07:51)
[2021-06-28] MEDS: TERBINAFINE 250MG TABLET PO SCH (07:52)
[2021-06-28 12:09] VITALS: BP 130/84
[2021-06-28 20:09] VITALS: BP 130/78
[2021-06-29] MEDS: AMPICILLIN/SULBACTAM 3 GM in SODIUM CHLORIDE 0.9% 100 ML IV SCH ×2 (01:57→07:44)
[2021-06-29 02:00] VITALS: BP 110/78
[2021-06-29] MEDS: VANCOMYCIN 1,600 MG in SODIUM CHLORIDE 0.9% 250 ML IV SCH (04:27)
[2021-06-29] MEDS: HYDROcodone/APAP 5/325 TABLET PO PRN ×3 (04:27→21:34)
[2021-06-29 07:18] VITALS: BP 146/76
[2021-06-29] MEDS: LISINOPRIL 10 MG TABLET PO SCH (09:15)
[2021-06-29] MEDS: OLANZAPINE 10 MG TABLET PO SCH ×2 (09:15→21:34)
[2021-06-29] MEDS: TERBINAFINE 250MG TABLET PO SCH (09:16)
[2021-06-29] MEDS: SENNA/DOCUSATE TABLET PO SCH (09:17)
[2021-06-29] MEDS: CEFAZOLIN 2,000 MG in SODIUM CHLORIDE 0.9% 50 ML IV SCH ×2 (12:24→21:34)
[2021-06-29 13:48] VITALS: BP 122/75
[2021-06-29 19:18] VITALS: BP 120/74
[2021-06-29] MEDS ORDERED: VANCOMYCIN 1,600 MG in SODIUM CHLORIDE 0.9% 250 ML IV SCH (22:00)
[2021-06-30 03:17] VITALS: BP 132/78
[2021-06-30] MEDS: CEFAZOLIN 2,000 MG in SODIUM CHLORIDE 0.9% 50 ML IV SCH (05:17)
[2021-06-30] MEDS: HYDROcodone/APAP 5/325 TABLET PO PRN ×4 (05:26→19:41)
[2021-06-30 06:44] VITALS: BP 106/77
[2021-06-30] MEDS: SENNA/DOCUSATE TABLET PO SCH (09:00)
[2021-06-30] MEDS: LISINOPRIL 10 MG TABLET PO SCH (09:43)
[2021-06-30] MEDS: TERBINAFINE 250MG TABLET PO SCH (09:43)
[2021-06-30] MEDS: OLANZAPINE 10 MG TABLET PO SCH ×2 (09:44→19:41)
[2021-06-30] MEDS: CEFAZOLIN PMX 2GM/50ML 50 ML IVPB SCH (13:00)
[2021-06-30 15:25] VITALS: BP 99/65
[2021-06-30 20:06] VITALS: BP_SYST 101; BP_SYST 144; BP_DIAS 64; BP_DIAS 76
[2021-07-01] MEDS: CEFAZOLIN PMX 2GM/50ML 50 ML IVPB SCH ×3 (00:25→16:53)
[2021-07-01 01:22] VITALS: BP 114/71
[2021-07-01] MEDS: HYDROcodone/APAP 5/325 TABLET PO PRN ×3 (05:45→21:02)
[2021-07-01 06:38] VITALS: BP 104/70
[2021-07-01] MEDS: TERBINAFINE 250MG TABLET PO SCH (08:02)
[2021-07-01] MEDS: OLANZAPINE 10 MG TABLET PO SCH ×2 (08:03→21:03)
[2021-07-01] MEDS: SENNA/DOCUSATE TABLET PO SCH (08:03)
[2021-07-01] MEDS: LISINOPRIL 10 MG TABLET PO SCH (08:03)
[2021-07-01 13:00] VITALS: BP 112/73
[2021-07-01 18:51] VITALS: BP 122/79
[2021-07-02 00:17] VITALS: BP 125/82
[2021-07-02] MEDS: CEFAZOLIN PMX 2GM/50ML 50 ML IVPB SCH ×3 (00:34→16:26)
[2021-07-02] MEDS: HYDROcodone/APAP 5/325 TABLET PO PRN ×3 (05:25→21:20)
[2021-07-02 06:46] VITALS: BP 120/80
[2021-07-02] MEDS: OLANZAPINE 10 MG TABLET PO SCH ×2 (08:06→21:20)
[2021-07-02] MEDS: LISINOPRIL 10 MG TABLET PO SCH (08:06)
[2021-07-02] MEDS: TERBINAFINE 250MG TABLET PO SCH (08:07)
[2021-07-02] MEDS: SENNA/DOCUSATE TABLET PO SCH (08:07)
[2021-07-02 14:14] VITALS: BP 114/60
[2021-07-02] MEDS: DIAZEPAM 5 MG TABLET PO PRN (17:41)
[2021-07-02 19:12] VITALS: BP 125/80
[2021-07-03] MEDS: CEFAZOLIN PMX 2GM/50ML 50 ML IVPB SCH ×3 (00:36→16:39)
[2021-07-03 00:42] VITALS: BP 116/74
[2021-07-03] MEDS: HYDROcodone/APAP 5/325 TABLET PO PRN ×4 (06:01→22:51)
[2021-07-03 07:07] VITALS: BP 109/73
[2021-07-03] MEDS: OLANZAPINE 10 MG TABLET PO SCH ×2 (09:01→20:06)
[2021-07-03] MEDS: TERBINAFINE 250MG TABLET PO SCH (09:02)
[2021-07-03] MEDS: LISINOPRIL 10 MG TABLET PO SCH (09:03)
[2021-07-03] MEDS: SENNA/DOCUSATE TABLET PO SCH (09:03)
[2021-07-03 12:06] VITALS: BP 122/74
[2021-07-03 20:11] VITALS: BP 123/77
[2021-07-04 00:17] VITALS: BP 119/76
[2021-07-04] MEDS: CEFAZOLIN PMX 2GM/50ML 50 ML IVPB SCH ×2 (00:33→10:11)
[2021-07-04] MEDS: DIAZEPAM 5 MG TABLET PO PRN (00:59)
[2021-07-04] MEDS: HYDROcodone/APAP 5/325 TABLET PO PRN ×4 (04:17→20:35)
[2021-07-04 05:48] LABS: BASOPHILS % (AUTO) 0 % (0-1); EOSINOPHILS % (AUTO) 2 % (1-7); LYMPHOCYTES % (AUTO) 26 % (22-44); MEAN CORPUSCULAR HEMOGLOBIN 30.2 pg (27.0-34.8); MEAN CORPUSCULAR HGB CONC 33.8 g/dL (32.4-35.8); MEAN PLATELET VOLUME 8.4 fL (7.4-10.4); MONOCYTES % (AUTO) 11 % (2-9); NEUTROPHILS % (AUTO) 61 % (42-75); PLATELET COUNT 206 x10^3/uL (130-400); RED BLOOD COUNT 3.66 x10^6/uL (3.82-5.3); RED CELL DISTRIBUTION WIDTH 15.1 % (9.6-15.2)
[2021-07-04 05:57] LABS: ALANINE AMINOTRANSFERASE 15 U/L (12-78); ALBUMIN 3.2 g/dL (3.4-5.0); ANION GAP 5 mmol/L (5-15); CALCIUM 8.2 mg/dL (8.5-10.1); CHLORIDE 105 mmol/L (98-107); CREATININE 0.55 mg/dL (0.55-1.02)
[2021-07-04 06:05] LABS: ALKALINE PHOSPHATASE 78 U/L (45-117); BILIRUBIN,TOTAL 0.4 mg/dL (0.2-1.0)
[2021-07-04] MEDS: LISINOPRIL 10 MG TABLET PO SCH (10:11)
[2021-07-04] MEDS: OLANZAPINE 10 MG TABLET PO SCH ×2 (10:11→20:31)
[2021-07-04] MEDS: TERBINAFINE 250MG TABLET PO SCH (10:12)
[2021-07-04] MEDS: SENNA/DOCUSATE TABLET PO SCH (10:12)
[2021-07-04 12:37] VITALS: BP 124/78
[2021-07-04] MEDS ORDERED: DALBAVANCIN HCL 1,500 MG in DEXTROSE 5% 500 ML IV ONE (13:00)
[2021-07-04 20:35] VITALS: BP 144/79
[2021-07-05 00:40] VITALS: BP 130/79
[2021-07-05] MEDS: HYDROcodone/APAP 5/325 TABLET PO PRN ×4 (03:48→20:22)
[2021-07-05 07:03] VITALS: BP 119/79
[2021-07-05] MEDS: SENNA/DOCUSATE TABLET PO SCH (08:51)
[2021-07-05] MEDS: LISINOPRIL 10 MG TABLET PO SCH (08:52)
[2021-07-05] MEDS: OLANZAPINE 10 MG TABLET PO SCH ×2 (08:52→20:17)
[2021-07-05] MEDS: TERBINAFINE 250MG TABLET PO SCH (08:52)
[2021-07-05 12:50] VITALS: BP 130/83
[2021-07-05] MEDS: HEPARIN 5,000 UNITS/ML, 1ML SQ SCH ×2 (15:08→23:14)
[2021-07-05 20:12] VITALS: BP 121/79
[2021-07-06 00:29] VITALS: BP 110/71
[2021-07-06] MEDS: HYDROcodone/APAP 5/325 TABLET PO PRN ×2 (02:27→19:35)
[2021-07-06] MEDS: HEPARIN 5,000 UNITS/ML, 1ML SQ SCH ×3 (08:39→23:22)
[2021-07-06] MEDS: TERBINAFINE 250MG TABLET PO SCH (08:39)
[2021-07-06] MEDS: SENNA/DOCUSATE TABLET PO SCH (08:40)
[2021-07-06] MEDS: LISINOPRIL 10 MG TABLET PO SCH (08:40)
[2021-07-06] MEDS: OLANZAPINE 10 MG TABLET PO SCH ×2 (08:40→19:34)
[2021-07-06 08:47] VITALS: BP 122/79
[2021-07-06 14:03] VITALS: BP 126/78
[2021-07-06] MEDS: MORPHINE SULFATE 4 MG/ML, 1ML IVPush PRN (15:53)
[2021-07-06 20:46] VITALS: BP 120/72
[2021-07-06] MEDS: DIAZEPAM 5 MG TABLET PO PRN (20:49)
[2021-07-07 01:53] VITALS: BP 104/68
[2021-07-07] MEDS: HYDROcodone/APAP 5/325 TABLET PO PRN ×2 (03:16→21:17)
[2021-07-07 06:34] VITALS: BP 107/66
[2021-07-07] MEDS: TERBINAFINE 250MG TABLET PO SCH (08:29)
[2021-07-07] MEDS: SENNA/DOCUSATE TABLET PO SCH (08:30)
[2021-07-07] MEDS: HEPARIN 5,000 UNITS/ML, 1ML SQ SCH ×3 (08:30→23:11)
[2021-07-07] MEDS: OLANZAPINE 10 MG TABLET PO SCH ×2 (08:30→21:17)
[2021-07-07] MEDS: LISINOPRIL 10 MG TABLET PO SCH (08:31)
[2021-07-07] MEDS: MORPHINE SULFATE 4 MG/ML, 1ML IVPush PRN ×2 (18:14→23:53)
[2021-07-07 19:13] VITALS: BP 116/64
[2021-07-08 01:35] VITALS: BP 111/74
[2021-07-08] MEDS: HYDROcodone/APAP 5/325 TABLET PO PRN ×2 (03:36→11:06)
[2021-07-08] MEDS: MORPHINE SULFATE 4 MG/ML, 1ML IVPush PRN ×5 (06:03→20:57)
[2021-07-08 07:36] VITALS: BP 127/81
[2021-07-08] MEDS: TERBINAFINE 250MG TABLET PO SCH (08:19)
[2021-07-08] MEDS: SENNA/DOCUSATE TABLET PO SCH (08:20)
[2021-07-08] MEDS: LISINOPRIL 10 MG TABLET PO SCH (08:20)
[2021-07-08] MEDS: OLANZAPINE 10 MG TABLET PO SCH ×2 (08:20→21:04)
[2021-07-08] MEDS: HEPARIN 5,000 UNITS/ML, 1ML SQ SCH ×3 (08:20→22:31)
[2021-07-08 13:54] VITALS: BP 110/73
[2021-07-08 19:27] VITALS: BP 148/83
[2021-07-09 00:20] VITALS: BP 116/68
[2021-07-09] MEDS: MORPHINE SULFATE 4 MG/ML, 1ML IVPush PRN ×6 (01:39→22:45)
[2021-07-09 06:53] VITALS: BP 115/73
[2021-07-09] MEDS: LISINOPRIL 10 MG TABLET PO SCH (07:45)
[2021-07-09] MEDS: SENNA/DOCUSATE TABLET PO SCH (07:45)
[2021-07-09] MEDS: HEPARIN 5,000 UNITS/ML, 1ML SQ SCH ×3 (07:45→22:44)
[2021-07-09] MEDS: OLANZAPINE 10 MG TABLET PO SCH ×2 (07:46→20:39)
[2021-07-09] MEDS: TERBINAFINE 250MG TABLET PO SCH (07:46)
[2021-07-09 13:28] VITALS: BP 105/70
[2021-07-09 14:30] LABS: ALANINE AMINOTRANSFERASE 19 U/L (12-78); ALBUMIN 3.3 g/dL (3.4-5.0); ANION GAP 8 mmol/L (5-15); CALCIUM 8.7 mg/dL (8.5-10.1); CHLORIDE 107 mmol/L (98-107); CREATININE 0.57 mg/dL (0.55-1.02)
[2021-07-09 14:33] LABS: ALKALINE PHOSPHATASE 78 U/L (45-117); BILIRUBIN,TOTAL 0.3 mg/dL (0.2-1.0); TOTAL PROTEIN 7.2 g/dL (6.4-8.2)
[2021-07-09 18:53] VITALS: BP 117/69
[2021-07-09 20:39] VITALS: BP 133/94
[2021-07-10 00:03] VITALS: BP 121/73
[2021-07-10] MEDS: HYDROcodone/APAP 5/325 TABLET PO PRN ×3 (03:34→23:16)
[2021-07-10 06:54] VITALS: BP 117/89
[2021-07-10] MEDS: MORPHINE SULFATE 4 MG/ML, 1ML IVPush PRN ×3 (07:17→19:26)
[2021-07-10] MEDS: SENNA/DOCUSATE TABLET PO SCH (07:47)
[2021-07-10] MEDS: OLANZAPINE 10 MG TABLET PO SCH ×2 (07:47→20:24)
[2021-07-10] MEDS: HEPARIN 5,000 UNITS/ML, 1ML SQ SCH ×3 (07:47→23:19)
[2021-07-10] MEDS: TERBINAFINE 250MG TABLET PO SCH (07:48)
[2021-07-10] MEDS: LISINOPRIL 10 MG TABLET PO SCH (07:48)
[2021-07-10 13:56] VITALS: BP 101/64
[2021-07-10 15:50] LABS: BASOPHILS % (AUTO) 1 % (0-1); EOSINOPHILS % (AUTO) 2 % (1-7); LYMPHOCYTES % (AUTO) 23 % (22-44); MEAN CORPUSCULAR HEMOGLOBIN 29.9 pg (27.0-34.8); MEAN CORPUSCULAR HGB CONC 33.1 g/dL (32.4-35.8); MEAN PLATELET VOLUME 7.7 fL (7.4-10.4); MONOCYTES % (AUTO) 9 % (2-9); NEUTROPHILS % (AUTO) 65 % (42-75); PLATELET COUNT 251 x10^3/uL (130-400); RED BLOOD COUNT 3.66 x10^6/uL (3.82-5.3); RED CELL DISTRIBUTION WIDTH 14.6 % (9.6-15.2)
[2021-07-10 18:27] VITALS: BP 136/82
[2021-07-11 01:51] VITALS: BP 107/73
[2021-07-11] MEDS: MORPHINE SULFATE 4 MG/ML, 1ML IVPush PRN ×2 (02:41→07:48)
[2021-07-11] MEDS: HYDROcodone/APAP 5/325 TABLET PO PRN (06:14)
[2021-07-11 06:54] VITALS: BP 109/72
[2021-07-11] MEDS: SENNA/DOCUSATE TABLET PO SCH (07:45)
[2021-07-11] MEDS: HEPARIN 5,000 UNITS/ML, 1ML SQ SCH (07:45)
[2021-07-11] MEDS: TERBINAFINE 250MG TABLET PO SCH (07:46)
[2021-07-11] MEDS: OLANZAPINE 10 MG TABLET PO SCH (07:47)
[2021-07-11] MEDS: LISINOPRIL 10 MG TABLET PO SCH (07:47)
[2021-07-11] MEDS ORDERED: DALBAVANCIN HCL 1,500 MG in DEXTROSE 5% 500 ML IV ONE (13:00)
== END 2021-07-11 14:24 | disposition home or self-care (01) | DRG 504 ==
LOC: 3N 14:27
PROVIDERS: ADMIT Psychiatry & Neurology Psychosomatic Medicine; ATTEND Family Medicine
PROC: 0Y6R0Z2 Detachment at Right 2nd Toe, Mid, Open Approach (ICD-10-PCS; 2021-06-25)
PROC: 0Y6S0Z2 Detachment at Left 2nd Toe, Mid, Open Approach (ICD-10-PCS; principal; 2021-06-25 08:30)
DX: M86.8X7 Other osteomyelitis, ankle and foot (principal); R45.851 Suicidal ideations; L03.031 Cellulitis of right toe; E66.9 Obesity, unspecified; Z68.32 Body mass index [BMI] 32.0-32.9, adult; Z71.3 Dietary counseling and surveillance; I73.9 Peripheral vascular disease, unspecified; F20.9 Schizophrenia, unspecified; Z20.822 Contact with and (suspected) exposure to COVID-19; B35.1 Tinea unguium; E78.5 Hyperlipidemia, unspecified; F15.10 Other stimulant abuse, uncomplicated; F17.200 Nicotine dependence, unspecified, uncomplicated; G62.9 Polyneuropathy, unspecified; G89.29 Other chronic pain; I11.0 Hypertensive heart disease with heart failure; I25.10 Atherosclerotic heart disease of native coronary artery without angina pectoris; I50.9 Heart failure, unspecified; J44.9 Chronic obstructive pulmonary disease, unspecified; L84 Corns and callosities; S92.911A Unspecified fracture of right toe(s), initial encounter for closed fracture; Z59.0 Homelessness; Z79.2 Long term (current) use of antibiotics; Z79.4 Long term (current) use of insulin; Z86.73 Personal history of transient ischemic attack (TIA), and cerebral infarction without residual deficits; Z88.0 Allergy status to penicillin; Z89.419 Acquired absence of unspecified great toe; Z90.710 Acquired absence of both cervix and uterus; Z90.49 Acquired absence of other specified parts of digestive tract; Z79.899 Other long term (current) drug therapy; X58.XXXA Exposure to other specified factors, initial encounter; Y93.89 Activity, other specified; Y92.89 Other specified places as the place of occurrence of the external cause; Y99.8 Other external cause status
CPT/HCPCS: 36415; 80048; 80053; 80202; 80307; 85025; 85651; 86140; 87040; 87070; 87075; 87077; 87186; 87205; 87635; 88305; 88311; 93005; G0378; J0295; J0690; J1100; J1644; J2405; J2704; J3010; J3370; A9575; J0875; J2270; J7050; J7060

== ENCOUNTER 2021-07-18 12:32 | Emergency (ER) | payer MEDICARE, MEDICAID ==
[~2021-07-18] VITALS: Ht 162.6 cm; Wt 60.0 kg
--- NOTE | 2021-07-18 13:00 | NUR ---
PT CAME IN CO DIZZINESS AND CP THAT STARTED YESTERDAY. PT WAS IN A [employer] AND A BYSTANDER CALLED 911. PT RESTING IN [facility]. EKG COMPLETE. PT ALSO REPORTS THAT "I MISSED MY RIDE WITH SOME PEOPLE AND IM VERY UPSET". PT YELLED AT REGISTRATION EMPLOYEE "IM SICK OF YOU ASKING MY NAME!"
--- NOTE | 2021-07-18 13:19 | NUR ---
ERP AT BEDSIDE.
[2021-07-18] MEDS ORDERED: ASPIRIN 81 MG TABLET CHEW ONE (13:20)
[2021-07-18] MEDS ORDERED: ASPIRIN 81 MG TABLET CHEW PO ONE (13:30)
[2021-07-18 13:40] LABS: BASOPHILS % (AUTO) 1 % (0-1); EOSINOPHILS % (AUTO) 2 % (1-7); LYMPHOCYTES % (AUTO) 29 % (22-44); MEAN CORPUSCULAR HEMOGLOBIN 30.2 pg (27.0-34.8); MEAN CORPUSCULAR HGB CONC 33.6 g/dL (32.4-35.8); MEAN PLATELET VOLUME 7.9 fL (7.4-10.4); MONOCYTES % (AUTO) 9 % (2-9); NEUTROPHILS % (AUTO) 60 % (42-75); PLATELET COUNT 266 x10^3/uL (130-400); RED BLOOD COUNT 3.97 x10^6/uL (3.82-5.3); RED CELL DISTRIBUTION WIDTH 15.1 % (9.6-15.2)
[2021-07-18 13:52] LABS: ALBUMIN 3.6 g/dL (3.4-5.0); ANION GAP 11 mmol/L (5-15); CALCIUM 8.7 mg/dL (8.5-10.1); CHLORIDE 107 mmol/L (98-107)
[2021-07-18 13:56] LABS: CREATININE 0.75 mg/dL (0.55-1.02); TROPONIN I < 0.015 ng/mL (0.000-0.045)
[2021-07-18] MEDS ORDERED: KETOROLAC 60 MG/2 ML ONE (14:22)
[2021-07-18] MEDS ORDERED: KETOROLAC 30 MG/1 ML IM ONE (14:30)
[2021-07-18 14:58] VITALS: BP 136/65
--- NOTE | 2021-07-18 15:16 | NUR ---
Patient given discharge instructions and they have confirmed that they understand the instructions. Patient ambulatory with steady gait.
== END 2021-07-18 15:17 | disposition home or self-care (01) ==
LOC: ED 13:49
DX: R07.89 Other chest pain (principal); R42 Dizziness and giddiness; I11.0 Hypertensive heart disease with heart failure; I50.9 Heart failure, unspecified; E78.5 Hyperlipidemia, unspecified; J44.9 Chronic obstructive pulmonary disease, unspecified; F17.200 Nicotine dependence, unspecified, uncomplicated; M19.90 Unspecified osteoarthritis, unspecified site; Z90.49 Acquired absence of other specified parts of digestive tract
CPT/HCPCS: 36415; 71045; 80048; 82040; 84484; 85025; 93005; 96372; 99285; J1885